=== PATIENT | male | born 1960 | race Caucasian/White ===

== ENCOUNTER 2018-03-28 18:48 | Emergency (ER) | payer MEDICAID ==
[~2018-03-28] VITALS: Ht 188 cm; Wt 94.0 kg
[~2018-03-28 18:48] MED LIST: ATEN50TA41 PO; METH500T7 PO
[2018-03-28 18:52] VITALS: BP 128/90
[2018-03-28] MEDS ORDERED: HYDR1TAB14 PO (19:15)
[2018-03-28] MEDS ORDERED: TAMS-11 PO (19:15)
== END 2018-03-28 20:20 | disposition home or self-care (01) ==
LOC: ED 20:00
DX: M43.16 Spondylolisthesis, lumbar region (principal); I10 Essential (primary) hypertension
CPT/HCPCS: 99283